=== PATIENT | male | born 1950 | race African-American/Black ===

== ENCOUNTER 2024-12-14 20:13 | Emergency (ER) | payer MEDICARE, OTHER ==
[~2024-12-14] VITALS: Ht 177.8 cm; Wt 77.0 kg
[2024-12-14 20:14] VITALS: O2SAT 100
[2024-12-14] MEDS: ACETAMINOPHEN 325MG TABLET PO ONE (20:52)
[2024-12-14] MEDS: KETOROLAC 30MG/ML VIAL IM ONE (20:52)
[2024-12-14] MEDS: CYCLOBENZAPRINE 10MG TABLET PO ONE (20:53)
[2024-12-14] MEDS: LIDOCAINE 5% PATCH TOP ONE (20:53)
[2024-12-14] MEDS ORDERED: IBUP-1521 MT (22:06)
[2024-12-14] MEDS ORDERED: CYCL5TAB3 MT (22:06)
[2024-12-14] MEDS ORDERED: LIDO700A30 TP (22:06)
[2024-12-14 22:38] VITALS: BP 97/38; PULSE 58; RESP 16; TEMP 36.7; O2SAT 98
== END 2024-12-14 22:45 | disposition home or self-care (01) ==
LOC: ER 20:13
DX: M25.512 Pain in left shoulder (principal); M79.632 Pain in left forearm; M25.552 Pain in left hip; R55 Syncope and collapse; W19.XXXA Unspecified fall, initial encounter; Y93.89 Activity, other specified; Y92.89 Other specified places as the place of occurrence of the external cause; Y99.8 Other external cause status
CPT/HCPCS: 99285; 70450; 73502; 73030; 73060; 96372; J1885